=== PATIENT | female | born 1955 | race Caucasian/White ===

== ENCOUNTER 2017-03-01 13:44 | Observation (INO) | payer MEDICARE, MEDICAID ==
[2017-03-01] MEDS ORDERED: NS 0.9% 1000 ML* 1,000 ML IV ONE (14:55)
[2017-03-01 15:16] LABS: Hematocrit 36 % (35-47); Mean Corpuscular HGB Conc 33 g/dl (31-36); Mean Corpuscular Hemoglobin 29 pg (27-31); Mean Corpuscular Volume 87 fL (80-97); Mean Platelet Volume 8 um3 (7.4-10.4); Red Blood Count 4.15 10^6/ul (4.0-5.4); Red Cell Distribution Width 13 % (10.5-15); White Blood Count 10.4 10^3/ul (3.5-10.8)
[2017-03-01 15:36] LABS: Albumin 4.1 g/dL (3.2-5.2); BUN/Creatinine Ratio 14.6 (8-20); Calcium 9.8 mg/dL (8.6-10.3); EGFR African American 83.2 (>60); EGFR Non-African American 64.7 (>60); Globulin 3.2 g/dL (2-4); Potassium 4.2 mmol/L (3.5-5.0); Total Bilirubin 0.3 mg/dL (0.2-1.0); Total Protein 7.3 g/dL (6.4-8.9)
--- NOTE | 2017-03-01 15:45 | ED ---
Complex/Multi-Sys Presentation - HPI Summary HPI Summary: Pt here w/ multiple symptoms. What brought her in today is worsening of weakness and "jerkiness". While moving her bowels on the toilet, had a large amount bleeding from rectum. Painful. Pt reports she's had this almost daily her "whole life" (painful bloody stools) but not as bad as it is today (more blood than usual). She reports BARBOSA, chest pain and fatigue are worsening over the past 7+ months. Gets confused intermittently - no known head injury or syncope. She does have associated lower ab pain and nausea "all the time" - no vomiting. BM's are "all over the place". Has been diagnosed with IBS and takes amitiza. Had lactulose added within the past 1-2 months but stopped taking as she was having excessive BM's for a while. She reports in June she was dx'd w/ c.diff. Tried flagyl but couldn't tolerate this so started a different anbx which she completed and it helped her bowels. Was seen recently however through her PCP's office who ordered CT scan and per pt was dx'd w/ "colitis" - no meds or treatment per pt- no h/o crohn's, UC, celiac dz. Denies fever, chills - states she's always hot. Has thyroid dysfunction as she has levothyroxine on her med list. States she's had colonoscopy in the past - h/o polyps but nothing serious. She has known hemorrhoids and requested to have these removed however physician declined to remove at this time. Also mentions feet area swollen > 1 week (new sx). Other med hx significant for: *Interstitial cystitis - takes elmiron and myrbetriq ER. *Fibromyalgia and chronic back pain/"sciatica" - takes tizanidine, fluoxetine, trazodone (at night), lyrica, oxyocodone, oxycontin, topiramate, and amitriptyline. States she's been taking these meds for many months if not years. Baclofen was also added in the past few months however pt reports she had sx of dizziness, confusion before taking. - History Of Current Complaint Chief Complaint: EDGeneral Time Seen by Provider: 03/01/17 14:49 Hx Obtained From: Patient, Family/Beamer Operator - home health aid - Allergies/Home Medications Allergies/Adverse Reactions: Allergies Allergy/AdvReac Type Severity Reaction Status Date / Time Morphine AdvReac Severe Altered Verified 07/07/15 12:11 Mental Status Adhesive Tape AdvReac Intermediate Rash Verified 07/07/15 12:11 Methotrexate AdvReac Intermediate See Comment Verified 07/07/15 12:11 Home Medications: Home Medications Amitriptyline TAB* [Elavil TAB*] 25 mg PO BEDTIME 03/01/17 [History Confirmed ] Amoxicillin PO (*) [Amoxicillin 875 MG (*)] 875 mg PO BID 03/01/17 [History Confirmed 03/01/17] Baclofen TAB* [Lioresal TAB*] 20 mg PO BID 03/01/17 [History Confirmed 03/01/17 ] Ergocalciferol CAP* [Drisdol CAP*] 50,000 unit PO Q7D 03/01/17 [History Confirmed 03/01/17] Esomeprazole(NF) [NEXium(NF)] 20 mg PO DAILY 03/01/17 [History Confirmed ] FLUoxetine CAP* [PROzac CAP*] 40 mg PO DAILY 03/01/17 [History Confirmed ] Imipramine (NF) 25 mg PO DAILY 03/01/17 [History Confirmed 03/01/17] Lactulose* 15 ml PO TID 03/01/17 [History Confirmed 03/01/17] Levothyroxine TAB* [Synthroid TAB*] 137 mcg PO DAILY 03/01/17 [History Confirmed 03/01/17] Mirabegron (NF) [Myrbetriq (NF)] 25 mg PO DAILY 03/01/17 [History Confirmed ] Oxycodone HCl [Oxycontin] 15 mg PO Q12HR PRN 03/01/17 [History Confirmed ] Oxycodone TAB(NF) [Oxycodone HCl 10 MG] 10 mg PO Q8HR PRN 03/01/17 [History Confirmed 03/01/17] Pentosan Polysulfate Sod (NF) [Elmiron (NF)] 100 mg PO TID 03/01/17 [History Confirmed 03/01/17] Pregabalin CAP(*) [Lyrica CAP(*)] 200 mg PO Q8HR PRN 03/01/17 [History Confirmed 03/01/17] Topiramate TAB(*) [Topamax 25 MG tab] 25 mg PO Q12HR 03/01/17 [History Confirmed 03/01/17] Varenicline (NF) [Chantix 1 MG TAB (NF)] 1 mg PO BID 03/01/17 [History Confirmed 03/01/17] traZODone TAB* [Desyrel TAB*] 200 - 400 mg PO BEDTIME 03/01/17 [History Confirmed 03/01/17] PMH/Surg Hx/FS Hx/Imm Hx Previously Healthy: No - recently dx'd w/ colitis Endocrine/Hematology History: Reports: Hx Thyroid Disease, Hx Anemia Respiratory History: Reports: Other Respiratory Problems/Disorders - shortness of breath and chronic cough GI History: Reports: Hx Diverticulosis, Hx Gastroesophageal Reflux Disease - takes nexium daily, Hx Irritable Bowel - amitiza History: Reports: Other Problems/Disorders - incontinence, interstitial cystitis Musculoskeletal History: Reports: Hx Arthritis, Hx Back Problems - chronic LBP; "sciatica", Hx Fibromyalgia Sensory History: Reports: Hx Cataracts, Hx Contacts or Glasses, Hx Glaucoma Opthamlomology History: Reports: Hx Cataracts, Hx Contacts or Glasses, Hx Glaucoma Neurological History: Reports: Hx Headaches Psychiatric History: Reports: Hx Depression - Surgical History Surgery Procedure, Year, and Place: Tonsils-1967. [id number]. hysterectomy -1983. left foot surgery-1991. abscess removal 1968. 5 back sugeries (2009- 2013) Infectious Disease History: No Infectious Disease History: Reports: Hx Clostridium Difficile - June 2016 - tx'd per pt Denies: Traveled Outside the [place] in Last 30 Days - Social History Occupation: Unemployed, Retired Lives: Alone Alcohol Use: Rare - couple of times a year Hx Substance Use: No Substance Use Type: Reports: None Hx Tobacco Use: Yes - not currently Smoking Status (MU): Former Smoker Type: Cigarettes Have You Smoked in the Last Year: Yes Review of Systems Positive: Fatigue. Negative: Fever, Chills Positive: Blurred Vision - intermittenly x years ENT: Negative Negative: Dental Pain, Sore Throat, Ear Ache, Nasal Discharge Positive: Chest Pain - see HPI Respiratory: Negative Negative: Shortness Of Breath, Cough Gastrointestinal: Other - see HPI Positive: see HPI Musculoskeletal: Negative Skin: Negative Positive: Headache, Weakness Positive: Anxious All Other Systems Reviewed And Are Negative: Yes Physical Exam Triage Information Reviewed: Yes Vital Signs On Initial Exam: Initial Vitals Temp Pulse Resp BP Pulse Ox 98.7 F 62 24 126/109 94 03/01/17 13:54 03/01/17 13:54 03/01/17 13:54 03/01/17 13:54 03/01/17 13:54 Vital Signs Reviewed: Yes Appearance: Positive: Well-Appearing, No Pain Distress, Obese Skin: Positive: Warm, Dry - no ecchymosis Head/Face: Positive: Normal Head/Face Inspection Eyes: Positive: Normal, EOMI, TATIANA, Conjunctiva Clear - anicteric sclera ENT: Positive: Normal ENT inspection, Hearing grossly normal, Pharynx normal - mucosa moist. Negative: Nasal congestion, Nasal drainage, Muffled/hoarse voice Neck: Positive: Supple, Nontender Respiratory/Lung Sounds: Positive: Clear to Auscultation, Breath Sounds Present. Negative: Rales, Rhonchi, Stridor, Wheezes Cardiovascular: Positive: Normal, RRR, Pulses are Symmetrical in both Upper and Lower Extremities, S1, S2. Negative: Murmur, Rub, Leg Edema Left, Leg Edema Right Abdomen Description: Positive: No Organomegaly, Soft, Other: - mild epigastric and lower central pelvic pain; external hemorrhoids - TTP; gross BRB in bedside commode - no active bleeding from rectum upon exam but blood does appear to have come from this area Bowel Sounds: Positive: Present Pelvic Exam: Positive: external exam normal - no signs of trauma Musculoskeletal: Positive: Normal, Strength/ROM Intact Neurological: Positive: Normal, Sensory/Motor Intact, Alert, Oriented to Person Place, Time, CN Intact II-III Psychiatric: Positive: Anxious - has trouble finding words she wants to use at times, but otherwise A&O x 3 with fluid conversation Diagnostics - Vital Signs Vital Signs Temp Pulse Resp BP Pulse Ox 03/01/17 13:54 98.7 F 62 24 126/109 94 - Laboratory Lab Results: Lab Results 03/01/17 Range/Units 15:07 INR (Anticoag Therapy) 0.95 (0.89-1.11) APTT 34.0 (26.0-36.3) seconds Result Diagrams: 03/01/17 15:07 03/01/17 15:07 Lab Statement: Any lab studies that have been ordered have been reviewed, and results considered in the medical decision making process. Complex Multi-Symp Course/Dx Course Of Treatment: Pt presents w/ confusion, dizziness, headache, chest pain ab pain. Reports she's had these sx for "months" (at least > 7 per pt and home health aid). Today, had a painful BRB BM in bedside commode. Reports this is worse then it's ever been. Labs and imaging are unremarkable for siginicant acute pathology however while here she had a 2nd bloody BM. Although she is hemodynamically stable, I am concerned about the amount of blood she is passing through her rectum in the short course of time she's here. Discussed with Dr. Bruce who agrees further monitoring is appropriate. Spoke w/ Dr. Ramirez who agrees to admit. Pt stable at time of transfer to hospital team. - Diagnoses Provider Diagnoses: Gastrointestinal bleeding Discharge - Discharge Plan Condition: Stable Disposition: ADMITTED TO [facility]
--- NOTE | 2017-03-01 16:43 | RAD ---
HISTORY: Headache, confusion COMPARISONS: None TECHNIQUE: Multiple contiguous axial CT scans were obtained of the head without intravenous contrast. FINDINGS: HEMORRHAGE/INFARCT: There is no hemorrhage or acute infarct. MASSES/SHIFT: There is no mass or shift. EXTRA-AXIAL SPACES: There are no extra-axial fluid collections. SULCI AND VENTRICLES: The sulci and ventricles are normal in size and position for the patient's stated age. CEREBRUM: There are no focal parenchymal abnormalities. BRAINSTEM: There are no focal parenchymal abnormalities. CEREBELLUM: There are no focal parenchymal abnormalities. VESSELS: The vessels are grossly normal. PARANASAL SINUSES: There is mucosal thickening of the maxillary sinuses. ORBITS: The orbits are unremarkable. BONES AND SOFT TISSUE: No bone or soft tissue abnormalities are noted. OTHER: None IMPRESSION: NO ACUTE INTRACRANIAL PATHOLOGY.
[2017-03-01 17:26] LABS: Urine Bacteria Absent (Absent); Urine Bilirubin Negative (Negative); Urine Glucose Negative (Negative); Urine Nitrite Negative (Negative)
--- NOTE | 2017-03-01 17:46 | RAD ---
HISTORY: Chest pain, fatigue COMPARISONS: None VIEWS: 2: Frontal and lateral views of the chest. FINDINGS: CARDIOMEDIASTINAL SILHOUETTE: The cardiomediastinal silhouette is normal. JACQUELIN: The jacquelin are normal. PLEURA: The costophrenic angles are sharp. No pleural abnormalities are noted. LUNG PARENCHYMA: The lungs are clear. ABDOMEN: The upper abdomen is clear. There is no subphrenic gas. BONES AND SOFT TISSUES: Degenerative changes are noted along the spine. OTHER: None. IMPRESSION: NO ACTIVE CARDIOPULMONARY DISEASE.
[2017-03-01 17:59] LABS: TSH (Thyroid Stimulating Horm) 2.38 mcIU/mL (0.34-5.60)
[2017-03-01] MEDS ORDERED: Acetaminophen TAB* 325 MG PO PRN (18:42)
[2017-03-01] MEDS ORDERED: NS 0.9% 1000 ML* 1,000 ML IV SCH (18:45)
[2017-03-01] MEDS ORDERED: TIZANIDINE HCL 8 MG PO PRN (18:47)
[2017-03-01] MEDS: oxyCODONE TAB* 5 MG TAB PO PRN (19:07)
[2017-03-01] MEDS ORDERED: metroNIDAZOLE IV 500 MG/100ML* 500 MG/100 ML BAG IVPB SCH (19:30)
[2017-03-01] MEDS ORDERED: Ciprofloxacin 400MG IVPREMIX(* 400 MG/200 ML BAG IVPB SCH (20:30)
[2017-03-01 20:35] LABS: Hematocrit 36 % (35-47); Hemoglobin 11.8 g/dl (12.0-16.0)
[2017-03-01] MEDS: oxyCODONE SR TAB(*) 10 MG TAB.SR PO SCH ×2 (20:38→20:51)
[2017-03-01] MEDS: Baclofen TAB* 10 MG PO SCH (20:38)
[2017-03-01] MEDS: Topiramate TAB(*) 25 MG PO SCH (20:38)
[2017-03-01] MEDS: CMCS:Lubiprostone 24 MCG CAP (NF) PO SCH (20:44)
[2017-03-01] MEDS: [UNRECOGNIZED DRUG - OTHER] PO SCH (20:44)
[2017-03-01] MEDS ORDERED: Amitriptyline TAB* 25 MG PO SCH (21:00)
[2017-03-01] MEDS ORDERED: Iohexol 300* (CONTRAST) 10 ML SDV IV ONE (21:40)
[2017-03-01] MEDS ORDERED: HYDROmorphone* 1 MG/ML 1 ML SYR IV SLOW PU ONE (21:47)
--- NOTE | 2017-03-01 21:57 | RAD ---
CLINICAL HISTORY: Left lower quadrant pain COMPARISON: None TECHNIQUE: Multiple contiguous axial CT scans were obtained of the abdomen and pelvis after the administration of intravenous contrast. Coronal and sagittal multiplanar reformations are submitted for review. Oral contrast was administered. Delayed images were obtained through the abdomen and pelvis. FINDINGS: LUNG BASES: The lung bases are clear. LIVER: The liver is normal in shape, size, contour, and attenuation. BILE DUCTS: There is mild intrahepatic dilatation. The common duct is unremarkable. GALLBLADDER: The gallbladder is not visualized. Surgical clips are noted in the gallbladder fossa. PANCREAS: The pancreas is normal, without mass or ductal dilatation. SPLEEN: Normal in size and appearance. UPPER GI TRACT: Evaluation of the gastrointestinal tract is limited by incomplete gastric distention. The upper GI tract is unremarkable. SMALL BOWEL AND MESENTERY: The small bowel is normal in contour, course, and caliber. There is no obstruction or dilatation. COLON: The colon is normal in contour, course, caliber. There is no pericolonic inflammatory change. ADRENALS: Normal bilaterally. KIDNEYS: The kidneys are normal in shape, size, contour, and axis. There is no hydronephrosis or nephrolithiasis. BLADDER: The bladder is smooth in contour. PELVIC ORGANS: The pelvic organs are not visualized. AORTA: There is calcific atherosclerotic disease of the abdominal aorta and its branches, without aneurysmal dilatation IVC: Unremarkable LYMPH NODES: There is no lymphadenopathy by size criteria. ABDOMINAL WALL: There is postsurgical change to the anterior abdominal wall BONES AND SOFT TISSUES: There is postsurgical change to the spine. Degenerative changes are noted OTHER: None IMPRESSION: MILD BILIARY DILATATION. STATUS POST CHOLECYSTECTOMY. ATHEROSCLEROSIS. NO ACUTE CT PATHOLOGY OF THE VISUALIZED ABDOMEN OR PELVIS
[2017-03-01] MEDS: metroNIDAZOLE IV 500 MG/100ML* 500 MG/100 ML BAG IVPB SCH (21:59)
[2017-03-01] MEDS: Ciprofloxacin 400MG IVPREMIX(* 400 MG/200 ML BAG IVPB SCH (23:29)
[2017-03-02] MEDS ORDERED: CMCS: Melatonin (NF) 3 MG TAB PO PRN (01:54)
[2017-03-02] MEDS: oxyCODONE TAB* 5 MG TAB PO PRN ×2 (02:17→13:46)
[2017-03-02 02:49] LABS: Hematocrit 37 % (35-47); Hemoglobin 12.1 g/dl (12.0-16.0)
--- NOTE | 2017-03-02 02:59 | HP ---
CC: Dr. Woodard * HISTORY AND PHYSICAL: DATE OF ADMISSION: 03/01/17 PRIMARY CARE PROVIDER: Dr. Woodard. ATTENDING PHYSICIAN WHILE IN THE HOSPITAL: Dr. Nigel Lopes * (report dictated by Bj Littlejohn NP) CHIEF COMPLAINT: 1. Confusion. 2. Bright red blood per rectum. HISTORY OF PRESENT ILLNESS: Ms. Florian is a 61-year-old female patient with history of hypothyroidism, chronic pain, IBS, interstitial cystitis, fibromyalgia, STAR, herniated disk, spinal stenosis, and scoliosis. She comes in and states the last 6 weeks, she has been feeling forgetful off and on at times. She has been drowsy and she has been falling asleep. She also has noticed that she has been confused at times, drowsy. She has a history of being on opiates. In addition to this, recently was started back on baclofen. She was off baclofen for a while and they restarted it. She said she has chronic back pain and she is also admitting that she has been having some bloody stools. It was noted what appeared to be worsening in the ER today when she came in, she had a bloody bowel movement when she came in and then she had episode where she had about 200 cc of bloody bowel movement with clots. Of interesting note, she had a CT of the abdomen according to the patient about a week ago and was noted to have colitis per her and she was going to have a repeat CAT scan in the outpatient setting with her primary but unfortunately today because of the confusion, drowsiness, actually was not feeling well, she decided to come in. She does admit to me when I asked her directly if she was having any abdominal pain, she points to her left lower quadrant, she says it feels like a sharp stabbing discomfort. She does not really remember when it started as this may have been going on for a week for now. She cannot really tell me if it was sudden in onset or not. She says she does continue to smoke. She says that she does have pain particularly in her left leg and what pain shooting down the leg that is consistent with her sciatic pain according to the patient. She was concerned mostly because of the confusion and also because now ER noted the bloody bowel movements, we were asked to evaluate. She denies any recent antibiotics. She denies having any fevers or chills or any vomiting or on that nature. She says that she does have IBS and at times will be constipated and has diarrhea at times as well. Because of the bloody bowel movements, question of colitis, we were asked to evaluate for admission. PAST MEDICAL HISTORY: Significant for: 1. Hypothyroidism. 2. Chronic pain. 3. IBS. 4. Interstitial cystitis. 5. Fibromyalgia. 6. STAR. 7. Herniated disk. 8. Spinal stenosis. 9. Scoliosis. PAST SURGICAL HISTORY: She has had: 1. Back surgery. 2. Foot surgery x2. 3. Laparoscopic cholecystectomy. 4. Tonsillectomy. 5. Lysis of adhesions. 6. . 7. Hysterectomy. 8. Exploratory laparotomies. MEDICATIONS: Home medications include: 1. Colace 200 mg p.o. b.i.d. as needed. 2. Multivitamin 1 tablet p.o. daily. 3. Senna 2 tabs p.o. daily. 4. Trazodone 200 to 300 mg at bedtime. 5. Amitiza 24 mcg p.o. b.i.d. 6. Elavil 25 mg at bedtime. 7. Prozac 40 mg daily. 8. Lyrica 200 mg every 8 hours as needed. 9. Elmiron 100 mg p.o. t.i.d. 10. Baclofen 20 mg p.o. b.i.d. 11. Oxycodone 10 mg every 8 hours as needed. 12. OxyContin 15 mg p.o. every 12 hours as needed. 13. Myrbetriq 25 mg daily. 14. Zanaflex 8 mg p.o. b.i.d. as needed. 15. Synthroid 137 mcg p.o. daily. 16. Chantix 1 mg p.o. b.i.d. 17. Lactulose 15 cc p.o. t.i.d. 18. Ergocalciferol 50,000 units p.o. every 7 days. 19. Amoxicillin 875 mg p.o. b.i.d. 20. Topamax 25 mg every 12 hours. 21. Nexium 20 mg p.o. daily. ALLERGIES TO MEDICATIONS: Include MORPHINE, ADHESIVE TAPE, METHOTREXATE. FAMILY HISTORY: Mother was diabetic. Father has a history of CHF and in 80s. SOCIAL HISTORY: She is a smoker. She smokes for about 45 years. She is down to about a cigarette a day. At her peak, she will smoke about a pack a day. She does not drink alcohol. Surrogate decision maker is her friend, Colette. REVIEW OF SYSTEMS: There is no documented fever. She denied having any significant weight change. There was no double vision. There is no ear discharge. She denies having any rhinorrhea. There is no sore throat, no thyroid enlargement. Denied having any chest pain. There is no orthopnea. There is no nocturnal dyspnea. There was abdominal pain from my HPI. There was no nausea, no vomiting. No dysuria, no frequency. No loss of consciousness. No pruritus and no skin ulceration. Review of 14 systems completed, all others negative. PHYSICAL EXAMINATION GENERAL: At this time, Ms. Florian is a 61-year-old female patient. She is morbidly obese. She is sitting in the ER stretcher. She does not appear to be in any acute distress. VITAL SIGNS: Blood pressure 127/56, pulse 56, respirations 22, O2 sat 94%, temperature 98.7. HEENT: Head is atraumatic, normocephalic. Eyes: EOMs are intact. Sclerae anicteric, not pale. Throat: Oral mucosa appears to be dry. No oropharyngeal erythema. NECK: Supple. LUNGS: Clear to auscultation bilaterally. No wheezes, rales, or rhonchi. HEART: Sounds S1 and S2. Regular rate and rhythm. No murmurs, rubs, or gallops. ABDOMEN: Soft, it was flat. There was tenderness in the left lower quadrant. Bowel sounds present. EXTREMITIES: Pulses were 2+ throughout. She is moving all 4 extremities. RECTAL: I did appreciate multiple external hemorrhoids. On rectal exam, there was small amount of blood on my glove after extracting my finger. She did have pain with the exam particularly due to the hemorrhoids. NEUROLOGIC: She is awake, alert, oriented x3. Tongue midline. Adjunct Business Instructor equal. No gross focal deficits. SKIN: Intact. DIAGNOSTIC STUDIES/LAB DATA: Today revealed WBC of 10.4, RBC of 4.15, hemoglobin of 12.0, hematocrit of 36, platelet count of 267. INR 0.95, PTT of 34, D-dimer less than 200. Her sodium was 133, potassium 4.2, chloride of 99, bicarb 29, BUN 13, creatinine 0.39, glucose 94, calcium 9.8, mag 2.0. Total bili 0.3, AST 21, ALT 13, alk phos 102. Troponin 0. TSH was 2.38. Urine showed 3+ blood, 1+ rbc's. She did have a chest x-ray obtained today, which revealed no active cardiopulmonary disease. She did have a brain CT obtained today as well, which revealed no acute intracranial pathology. She did have an EKG obtained today as well, which revealed sinus bradycardia. She does have an intraventricular conduction delay, rate of 56. I do not have a previous for comparison. She did have flat T waves in lead III. No other inversions or ST elevations were noted. Old medical records were reviewed. ASSESSMENT AND PLAN: Ms. Florian is a 61-year-old female patient coming into the ER today with complaints initially of confusion and then now having complaints and found to have bright red blood per rectum. She will be admitted under observation status for: 1. Altered mental status: Again, she is awake, alert, nonfocal currently. I question if she is suffering from some polypharmacy. Baclofen was recently started, which certainly may be contributing. Also, in addition to this, she has untreated sleep apnea. She refused to wear a mask. So, I questioned if the narcotics are contributing to some hypercarbia. So, my plan will be to cut back on the baclofen down to 10 mg. I would consider cutting the OxyContin down to 10 b.i.d. and seeing how she does. I am going to do the baclofen first and we will continue to follow her and see if she has an episode of confusion while she is here. 2. Lower gastrointestinal bleed. Again, I suspect this is probably an ischemic colitis. I am going to put on antibiotics, clear liquid diet, IV fluid. I did touch base with GI and we will evaluate her tomorrow. We will check serial H and Hs and will follow closely. 3. Hypothyroidism. Continue Synthroid. 4. Chronic pain. Again, continue meds as prescribed with the exception of reducing the baclofen. 5. Irritable bowel syndrome. Continue meds as prescribed. 6. Interstitial cystitis. Continue meds as prescribed. 7. Fibromyalgia, unstable. Continue meds as prescribed. 8. Obstructive sleep apnea. I have encouraged CPAP use, which she is refusing. She can follow with primary. 9. History of spinal stenosis with scoliosis and herniated disk. We will continue her current pain medication. 10. DVT prophylaxis. Because of the gastrointestinal bleeding, I am not going to put her on heparin but I will order SCDs. 11. Code status. She is a full code. 12. Fluids, electrolytes, nutrition. She can have a clear liquid diet. TIME SPENT: On the admission was approximately 60 minutes; greater than half the time was spent [id number] with the patient obtaining my history and physical, the other half of the time was spent going over the plan of care with the patient and implementing the plan of care. I did discuss the plan of care with my attending, Dr. Lpoes; he is in agreement. BJ LITTLEJOHN NP [id number]/[facility] #: [id number] MARY
[2017-03-02] MEDS: metroNIDAZOLE IV 500 MG/100ML* 500 MG/100 ML BAG IVPB SCH (04:34)
[2017-03-02] MEDS ORDERED: Levothyroxine TAB* 137 MCG TAB PO SCH (06:00)
[2017-03-02 07:04] LABS: Hematocrit 37 % (35-47); Hemoglobin 12.1 g/dl (12.0-16.0); Mean Corpuscular HGB Conc 33 g/dl (31-36); Mean Corpuscular Hemoglobin 29 pg (27-31); Mean Corpuscular Volume 88 fL (80-97); Mean Platelet Volume 8 um3 (7.4-10.4); Red Blood Count 4.23 10^6/ul (4.0-5.4); Red Cell Distribution Width 13 % (10.5-15); White Blood Count 5.9 10^3/ul (3.5-10.8)
[2017-03-02] MEDS ORDERED: Omeprazole CAP* 20 MG PO SCH (07:30)
[2017-03-02 08:28] LABS: BUN/Creatinine Ratio 11.8 (8-20); Calcium 9.4 mg/dL (8.6-10.3); EGFR African American 87.7 (>60); EGFR Non-African American 68.2 (>60); Potassium 4.1 mmol/L (3.5-5.0)
[2017-03-02] MEDS ORDERED: FLUoxetine CAP* 20 MG PO SCH (09:00)
[2017-03-02] MEDS ORDERED: Mirabegron (NF) 25 MG TAB PO SCH (09:00)
[2017-03-02] MEDS: oxyCODONE SR TAB(*) 10 MG TAB.SR PO SCH (10:20)
[2017-03-02] MEDS: Baclofen TAB* 10 MG PO SCH (10:22)
[2017-03-02] MEDS: Topiramate TAB(*) 25 MG PO SCH (10:22)
[2017-03-02] MEDS: [UNRECOGNIZED DRUG - OTHER] PO SCH ×2 (10:38→13:15)
[2017-03-02] MEDS: Ciprofloxacin 400MG IVPREMIX(* 400 MG/200 ML BAG IVPB SCH (10:40)
[2017-03-02 12:10] VITALS: BP 148/85
[2017-03-02] MEDS: CMCS:Lubiprostone 24 MCG CAP (NF) PO SCH (12:14)
--- NOTE | 2017-03-02 12:40 | DCNOTE ---
Subjective Date of Service: 03/02/17 Interval History: Some blood in stool today, same as past 6 weeks. Mild epigastric pain, also not new. Objective Active Medications: Acetaminophen (Tylenol Tab*) 650 mg PO Q4H PRN PRN Reason: FEVER/PAIN Last Admin: 03/02/17 04:34 Dose: 650 mg Amitriptyline HCl (Elavil Tab*) 25 mg PO BEDTIME [facility] Last Admin: 03/01/17 20:39 Dose: 25 mg Baclofen (Lioresal Tab*) 10 mg PO BID [facility] Last Admin: 03/02/17 10:22 Dose: 10 mg Fluoxetine HCl (Prozac Cap*) 40 mg PO DAILY [facility] Last Admin: 03/02/17 10:31 Dose: Not Given Sodium Chloride (Ns 0.9% 1000 Ml*) 1,000 mls @ 100 mls/hr IV PER RATE [facility] Last Admin: 03/01/17 21:58 Dose: 100 mls/hr Levothyroxine Sodium (Synthroid Tab*) 137 mcg PO DAILY@0600 [facility] Last Admin: 03/02/17 04:34 Dose: 137 mcg Lubiprostone (Amitiza (Nf)) 24 mcg PO BID [facility] Last Admin: 03/02/17 12:14 Dose: 24 mcg Melatonin (Melatonin (Nf)) 3 mg PO BEDTIME PRN; Protocol PRN Reason: Sleep Last Admin: 03/02/17 03:08 Dose: 3 mg Mirabegron (Myrbetriq (Nf)) 25 mg PO DAILY [facility] Last Admin: 03/02/17 10:38 Dose: Not Given Omeprazole (Prilosec Cap*) 20 mg PO DAILY@0730 [facility] PRN Reason: Protocol Last Admin: 03/02/17 10:20 Dose: 20 mg Oxycodone HCl (Roxycodone Tab*) 10 mg PO Q8HR PRN PRN Reason: PAIN Last Admin: 03/02/17 02:17 Dose: 10 mg Oxycodone HCl (Oxycontin(*)) 10 mg PO Q12HR [facility] Last Admin: 03/02/17 10:20 Dose: 10 mg Pentosan Polysulfate Sodium (Elmiron (Nf)) 100 mg PO TID [facility] Last Admin: 03/02/17 10:38 Dose: Not Given Topiramate (Topamax(*)) 25 mg PO Q12HR [facility] Last Admin: 03/02/17 10:22 Dose: 25 mg Vital Signs 03/01/17 03/01/17 03/01/17 18:00 18:30 18:54 Temperature 97.5 F Pulse Rate 57 63 Respiratory 12 20 Rate Blood Pressure 127/56 168/103 (mmHg) O2 Sat by Pulse 93 95 Oximetry 03/01/17 03/01/17 03/01/17 19:00 19:07 20:00 Temperature Pulse Rate Respiratory 17 22 22 Rate Blood Pressure 139/84 (mmHg) O2 Sat by Pulse Oximetry 03/01/17 03/01/17 03/01/17 20:38 21:07 21:56 Temperature Pulse Rate Respiratory 20 22 20 Rate Blood Pressure (mmHg) O2 Sat by Pulse Oximetry 03/01/17 03/01/17 03/01/17 22:38 22:56 23:27 Temperature 97.7 F Pulse Rate 57 Respiratory 20 20 16 Rate Blood Pressure 147/65 (mmHg) O2 Sat by Pulse 94 Oximetry 03/02/17 03/02/17 03/02/17 02:17 02:47 04:17 Temperature 97.5 F Pulse Rate 55 Respiratory 20 16 20 Rate Blood Pressure 152/52 (mmHg) O2 Sat by Pulse 97 Oximetry 03/02/17 03/02/17 03/02/17 07:26 10:20 11:58 Temperature 97.7 F 99.4 F Pulse Rate 52 63 Respiratory 16 16 16 Rate Blood Pressure 158/77 148/85 (mmHg) O2 Sat by Pulse 93 95 Oximetry Oxygen Devices in Use Now: None Appearance: Alert, sitting up in bed. In fair spirits. Looks comfortable. Neck: NL Appearance and Movements; NL JVP, No Thyroid Enlargement, Masses Respiratory: Symmetrical Chest Expansion and Respiratory Effort, Clear to Auscultation, Clear to Percussion, Clear to Palpation Cardiovascular: NL Sounds; No Murmurs; No JVD, RRR, No Edema, - Extremities: No Edema, No Clubbing, Cyanosis, - Skin: No Rash or Ulcers, No Nodules or Sclerosis, - Neurological: Alert and Oriented x 3, NL Sensation Result Diagrams: 03/02/17 06:51 03/02/17 06:52 Additional Lab and Data: Lab Results 03/01/17 Range/Units 15:07 INR (Anticoag Therapy) 0.95 (0.89-1.11) APTT 34.0 (26.0-36.3) seconds Assess/Plan/Problems-Billing Assessment: - Patient Problems (1) GI bleed Current Visit: Yes Status: Acute Code(s): K92.2 - GASTROINTESTINAL HEMORRHAGE, UNSPECIFIED SNOMED Code(s): 55419719 Comment: Seems to be low volume. Patient states she had her 3rd colonoscopy in [place] about August this year. Bleeding has been going on about 6 weeks. Need outpt fup. (2) Back pain Current Visit: Yes Status: Acute Code(s): M54.9 - DORSALGIA, UNSPECIFIED SNOMED Code(s): 923220196 Comment: Patient is followed by a NS and a fibromyalgia specialist. She states she is due to have more back surgery soon. She does not want any of her medications changed. (3) STAR (obstructive sleep apnea) Current Visit: Yes Status: Acute Code(s): G47.33 - OBSTRUCTIVE SLEEP APNEA ( ADULT) (PEDIATRIC) SNOMED Code(s): 24443042 Comment: Patient refused CPAP. (4) Tobacco abuse Current Visit: Yes Status: Acute Code(s): Z72.0 - TOBACCO USE SNOMED Code( s): 068231348 Comment: Pt advised to quit smoking and avoid second hand smoke. (5) Hypothyroid Current Visit: Yes Status: Acute Code(s): E03.9 - HYPOTHYROIDISM, UNSPECIFIED SNOMED Code(s): 91918301 Comment: TSH wnl 03/01/17. Continue home dose levothyroxine. (6) Morbid obesity Current Visit: Yes Status: Acute Code(s): E66.01 - MORBID (SEVERE) OBESITY DUE TO EXCESS CALORIES SNOMED Code(s): 589185999 Comment: BMI 43.3. (7) IBS (irritable bowel syndrome) Current Visit: Yes Status: Acute Comment: Continue her usual meds. (8) Polypharmacy Current Visit: Yes Status: Acute Code(s): Z79.899 - OTHER [facility] (CURRENT ) DRUG THERAPY SNOMED Code(s): 611583199 Comment: Patient advised to review all her medications with her PCP. Status and Disposition: Discharge now. Fup her PCP.
--- NOTE | 2017-03-08 01:54 | DS ---
CC: Dr. John Woodard DISCHARGE SUMMARY: DATE OF ADMISSION: 03/01/17 DATE OF DISCHARGE: 03/02/17 HISTORY: This 61-year-old woman came with complaints of confusion and bright red blood per rectum. The patient states for 6 weeks she has been forgetful and drowsy, at times falling asleep. She has recently been started on baclofen for chronic back pain. She had bloody stools for sometime. She had a bloody bowel movement in the emergency room, reported to be with clots. Patient states she dowell d a CT scan of the abdomen a week before this admission. In the emergency room, she was felt to be awake and alert. It was felt that baclofen may have been part of the problem and this was not continued. The OxyContin was also reduced. She was treated I believe with a dose or two of antibiotics, which were not continued. She was put on clear liquid diet and IV fluids. I note that the patient has had 3 colonoscopies, the last one i n August of this year in [place]. The patient was advised to quit smoking and avoid second-hand smoke. I discussed the fact that she was on a lot of medications, some of which may not be benefiting her o r interacting well with the other medications; however, she felt that she needed to use all her medi cations as prescribed by the multiple physicians prescribing them. The patient was advised to have close followup with her primary care doctor about her bleeding for 6 weeks. FINAL DIAGNOSES: 1. Subacute GI bleeding. 2. Chronic back pain. 3. Obstructive sleep apnea. 4. Tobacco abuse. 5. Hypothyroidism. 6. Morbid obesity. 7. Irritable bowel syndrome. DISCHARGE MEDICATIONS: 1. Tizanidine 8 mg b.i.d. p.r.n. 2. Fluoxetine 40 mg daily. 3. Pregabalin 200 mg every 8 hours p.r.n. 4. Pentosan 100 mg t.i.d. 5. Baclofen 20 mg b.i.d. 6. Oxycodone 10 mg every 8 hours p.r.n. 7. OxyContin 15 mg every 12 hours p.r.n. 8. Mirabegron 25 mg daily. 9. Levothyroxine 137 mcg daily. 10. Varenicline 1 mg b.i.d. 11. Lactulose 15 mL t.i.d. 12. Ergocalciferol 50,000 units every 7 days. 13. Topiramate 25 mg every 12 hours. 14. Trazodone 200 to 300 mg h.s. 15. Esomeprazole 20 mg daily. 16. Amitriptyline 25 mg h.s. 17. Docusate 200 mg b.i.d. 18. Multivitamin with minerals 1 tablet daily. 19. Senna 2 tablets daily. 20. Lubiprostone 24 mcg b.i.d. [id number]/[facility] #: [id number]
== END 2017-03-02 15:25 | disposition home or self-care (01) ==
LOC: ED 13:44 → MEDTELE 17:31
PROVIDERS: ADMIT Internal Medicine; ATTEND Internal Medicine
DX: R19.5 Other fecal abnormalities (principal); K62.5 Hemorrhage of anus and rectum; E03.9 Hypothyroidism, unspecified; G89.29 Other chronic pain; K58.9 Irritable bowel syndrome, unspecified; M79.7 Fibromyalgia; G47.33 Obstructive sleep apnea (adult) (pediatric); Z79.891 Long term (current) use of opiate analgesic; Z79.899 Other long term (current) drug therapy; Z88.5 Allergy status to narcotic agent; F17.200 Nicotine dependence, unspecified, uncomplicated; N30.10 Interstitial cystitis (chronic) without hematuria; M48.00 Spinal stenosis, site unspecified; M41.9 Scoliosis, unspecified; R51 Headache; R53.83 Other fatigue; Z90.49 Acquired absence of other specified parts of digestive tract; I70.90 Unspecified atherosclerosis
CPT/HCPCS: 36415; 70450; 71020; 74177; 80048; 80053; 81003; 81015; 82607; 83605; 83735; 83880; 84443; 84484; 85014; 85018; 85025; 85379; 85610; 85730; 86850; 86900; 86901; 93005; 96365; 99284; A9270-GY; G0378; J0744; J1170; Q9967

== ENCOUNTER 2017-06-06 17:06 | Emergency (ER) | payer MEDICARE, MEDICAID ==
[2017-06-06 17:26] VITALS: BP 159/77
[2017-06-06] MEDS ORDERED: oxyCODONE TAB* 5 MG TAB PO ONE (17:51)
--- NOTE | 2017-06-06 19:02 | RAD ---
INDICATION: Fall. Back pain COMPARISON: Chest x-ray March 01, 2017 TECHNIQUE: Noncontrast axial source images was performed from the thoracic inlet to the level the hemidiaphragms. Coronal and and sagittal reformatted images were generated. FINDINGS: Vertebrae: There is no fracture or acute focal bony lesion. There is evidence of prior kyphoplasty at T9, T10, and T11. There is also level degenerative spurring most prominent at the lower thoracic levels. Alignment: There is an S type scoliotic deformity with convexity of the midthoracic spine to the right. There is mild focal kyphosis at thoracolumbar junction. Central Canal: There are no significant CT abnormalities of the central canal or foramina. MR imaging is a more sensitive method to evaluate the canal and foramina. Intervertebral disc spaces: The disc spaces are maintained. Soft tissues: There are no paravertebral soft tissue abnormalities. IMPRESSION: OSTEOPENIA WITH PRIOR KYPHOPLASTY. DEGENERATIVE SPURRING PREDOMINANTLY AT THE THORACOLUMBAR JUNCTION. NO ACUTE BONY FINDINGS.
--- NOTE | 2017-06-06 20:41 | ED ---
Sunshine Motta Alfonso, scribed for Jeremiah Zamora MD on 06/06/17 at 1756 . Adult Trauma - HPI Summary HPI Summary: This patient is a 61 year old F [place] [facility] by female s/p a mechanical fall since earlier today. She reports I was going from the van to the chair and there was a gap and I fell onto my left knee. The patient rates the pain 7/10 in severity. Symptoms aggravated by position. Symptoms alleviated by nothing. Patient reports numbness in the right buttocks. Patient denies bilateral LE numbness and head trauma. She is s/p L-spinal fusion surgery. - History of Current Complaint Chief Complaint: EDBackInjuryPain Stated Complaint: FALL/BACK PAIN Time Seen by Provider: 06/06/17 17:37 Hx Obtained From: Patient Mechanism of Injury: Fall Onset/Duration: Started Hours Ago, Traumatic Onset of Pain: Prior to Arrival Current Severity: Moderate Pain Intensity: 7 Pain Scale Used: 0-10 Numeric Aggravating Factor(s): Other - Position Alleviating Factor(s): Nothing Associated Signs & Symptoms: Positive: Other: - numbness in the right buttocks. Patient denies bilateral LE numbness and head trauma - Allergy/Home Medications Allergies/Adverse Reactions: Allergies Allergy/AdvReac Type Severity Reaction Status Date / Time Morphine AdvReac Severe Altered Verified 07/07/15 12:11 Mental Status Adhesive Tape AdvReac Intermediate Rash Verified 07/07/15 12:11 Methotrexate AdvReac Intermediate See Comment Verified 07/07/15 12:11 PMH/Surg Hx/FS Hx/Imm Hx Endocrine/Hematology History: Reports: Hx Thyroid Disease, Hx Anemia Respiratory History: Reports: Other Respiratory Problems/Disorders - shortness of breath and chronic cough GI History: Reports: Hx Diverticulosis, Hx Gastroesophageal Reflux Disease - takes nexium daily, Hx Irritable Bowel - amitiza History: Reports: Other Problems/Disorders - incontinence, interstitial cystitis Musculoskeletal History: Reports: Hx Arthritis, Hx Back Problems - chronic LBP; "sciatica", Hx Fibromyalgia Sensory History: Reports: Hx Cataracts, Hx Contacts or Glasses, Hx Glaucoma Denies: Hx Hearing Aid Opthamlomology History: Reports: Hx Cataracts, Hx Contacts or Glasses, Hx Glaucoma Neurological History: Reports: Hx Headaches Psychiatric History: Reports: Hx Depression - Surgical History Surgery Procedure, Year, and Place: Tonsils-1967. [id number]. hysterectomy -1983. left foot surgery-1991. abscess removal 1968. 5 back sugeries (2009- 2013). L-spinal fusion surgery Infectious Disease History: Yes Infectious Disease History: Reports: Hx Clostridium Difficile - June 2016 - tx'd per pt Denies: Traveled Outside the [place] in Last 30 Days - Family History Known Family History: Positive: Cardiac Disease - Social History Alcohol Use: None Hx Substance Use: Yes Substance Use Type: Reports: Marijuana Substance Use Comment - Amount & Last Used: Daily for pain management Hx Tobacco Use: Yes - not currently Smoking Status (MU): Light Every Day Tobacco Smoker Type: Cigarettes Have You Smoked in the Last Year: Yes Review of Systems Negative: Fever Positive: Other - fall Neurological: Other - numbness in the right buttocks; negative bilateral LE numbness and head trauma All Other Systems Reviewed And Are Negative: Yes Physical Exam - Summary Physical Exam Summary: VITAL SIGNS: Reviewed. GENERAL: Patient is a well-developed and morbidly obese female who is lying comfortable in the stretcher. Patient is not in any acute respiratory distress. HEAD AND FACE: No signs of trauma. No ecchymosis, hematomas or skull depressions. No sinus tenderness. EYES: PERRLA, EOMI x 2, No injected conjunctiva, no nystagmus. EARS: Hearing grossly intact. Ear canals and tympanic membranes are within normal limits. MOUTH: Oropharynx within normal limits. NECK: Supple, trachea is midline, no adenopathy, no JVD, no carotid bruit, no c- spine tenderness, neck with full ROM. CHEST: Symmetric, no tenderness at palpation LUNGS: Clear to auscultation bilaterally. No wheezing or crackles. CVS: Regular rate and rhythm, S1 and S2 present, no murmurs or gallops appreciated. ABDOMEN: Soft, non-tender. No signs of distention. No rebound no guarding, and no masses palpated. Bowel sounds are normal. EXTREMITIES: FROM in all major joints, no edema, no cyanosis or clubbing. NEURO: Alert and oriented x 3. No acute neurological deficits. Speech is normal and follows commands. SKIN: Dry and warm. Lumbosacral spine sutures intact. Triage Information Reviewed: Yes Vital Signs On Initial Exam: Initial Vitals Temp Pulse Resp BP Pulse Ox 97.6 F 75 18 159/77 97 06/06/17 17:14 06/06/17 17:14 06/06/17 17:14 06/06/17 17:14 06/06/17 17:14 Vital Signs Reviewed: Yes - Janice Coma Scale Coma Scale Total: 15 Diagnostics - Vital Signs Vital Signs Temp Pulse Resp BP Pulse Ox 06/06/17 17:14 97.6 F 75 18 159/77 97 - Laboratory Lab Statement: Any lab studies that have been ordered have been reviewed, and results considered in the medical decision making process. - CT T-Spine CT Interpretation Completed By: Radiologist - OSTEOPENIA WITH PRIOR KYPHOPLASTY. DEGENERATIVE SPURRING PREDOMINANTLY AT THE THORACOLUMBAR JUNCTION. NO ACUTE BONY FINDINGS. ED physician has reviewed this radiology report and agrees. L-Spine CT Interpretation Completed By: Radiologist - Pending official interpretation from radiologist. See [employer]. Adult Trauma Course/Dx - Course Assessment/Plan: Left Knee XR was refused by the patient. In the ED course the patient was given Oxycodone. Patient leaves the ED AMA because she does not want to wait for the CT L-Spine official radiologist interpretation. The risk of leaving AMA, including but not limited to , fracture, and paralysis, were discussed with the patient. She understands. - Diagnoses Provider Diagnoses: Back pain Discharge - Discharge Plan Condition: Stable Disposition: AGAINST MEDICAL ADVICE Referrals: John Woodard MD [Primary Care Provider] - The documentation as recorded by the Sunshine mcfarland Alfonso accurately reflects the service I personally performed and the decisions made by me, Jeremiah Zamora MD.
--- NOTE | 2017-06-06 22:00 | RAD ---
INDICATION: Back pain. Fall. COMPARISON: No plain films were obtained. A CT examination from November 29, 2016 is reviewed. This was obtained prior to Hager rafael placement. TECHNIQUE: Noncontrast axial source images was performed from the thoracolumbar junction to the sacrum. Coronal and and sagittal reformatted images were generated. FINDINGS: This is a limited examination. There is significant beam hardening artifact from due to the presence of Hager rods which extend from T11 through S1. There is also a fusion cage device which is placed at the L2-L3 level. There is evidence of previous kyphoplasty at T10, T12, and L1. There is no significant paravertebral mass. No additional findings. IMPRESSION: LIMITED STUDY DUE TO THE PRESENCE ARTIFACT FROM HAGER RAFAEL PLACEMENT. NO ACUTE ABNORMALITIES.
== END 2017-06-06 20:39 | disposition left against medical advice (07) ==
LOC: ED 17:06
DX: M54.9 Dorsalgia, unspecified (principal); F17.210 Nicotine dependence, cigarettes, uncomplicated
CPT/HCPCS: 72128; 72131; 99282; A9270-GY